=== PATIENT | male | born 2000 | race Caucasian/White ===

== ENCOUNTER 2021-05-14 19:38 | Emergency (ER) | payer OTHER, SELFPAY ==
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
[2021-05-14 20:45] VITALS: BP 113/70; PULSE 71; RESP 18; TEMP 36.7; O2SAT 98; BMI 25.7
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
== END 2021-05-14 23:58 | disposition home or self-care (01) ==
PROVIDERS: Emergency Provider Emergency Medicine Emergency Medical Services
DX: S63.92XA Sprain of unspecified part of left wrist and hand, initial encounter (principal); V43.52XA Car driver injured in collision with other type car in traffic accident, initial encounter; Y93.89 Activity, other specified; Y92.414 Local residential or business street as the place of occurrence of the external cause; Y99.9 Unspecified external cause status
CPT/HCPCS: 73110; 73130; 99283

== ENCOUNTER 2024-10-30 22:37 | Emergency (ER) | payer SELFPAY ==
[2024-10-30 22:47] VITALS: BP 130/100; PULSE 127; O2SAT 94
[2024-10-30 23:15] VITALS: BP 156/89; PULSE 121; RESP 16; TEMP 36.8; O2SAT 95; BMI 27.4
[2024-10-30 23:40] LABS: Hematocrit 44.0 % (42.0-52.0); Hemoglobin 16.0 g/dl (14.0-18.0); Mean Corpuscular HGB Conc 36.4 g/dl (31.0-36.0); Mean Corpuscular Hemoglobin 32.5 pg (27.0-33.0); Mean Corpuscular Volume 89.2 fL (80.0-98.0); NRBC Abs Auto 0.000 X10*3/uL (0.0-0.012); NRBC Pct Auto 0.0 /100WBC (0.0-0.2); Platelet Count 190 X10*3/uL (160-400); Red Blood Count 4.93 X10*6/uL (4.60-5.80); White Blood Count 5.5 X10*3/uL (4.8-10.8)
[2024-10-30 23:53] LABS: Cannabinoid Screen Urine POSITIVE (Not Detect)
[2024-10-30 23:56] LABS: Alanine Aminotransferase 29 U/L (0-40); Albumin Level 5.5 g/dL (3.5-5.0); Alkaline Phosphatase 67 U/L (39-117); Anion Gap 22 (12-20); Aspartate Amino Transferase 55 U/L (5-37); Blood Urea Nitrogen 5 mg/dL (9-16); Calcium 9.9 mg/dL (8.4-10.2); Carbon Dioxide 22 mmol/L (22-29); Chloride 102 mmol/L (96-108); Creatinine Clr Calc Pharmacy 141.0; Estimated Glomerular Filt Rate > 60; Potassium 3.6 mmol/L (3.3-5.1); Sodium 142 mmol/L (135-145); Total Protein 8.0 g/dL (6.5-8.0)
[2024-10-30 23:57] LABS: Acetaminophen LAB < 3 mcg/mL (<30); Salicylate < 5.0 mg/dL (15-30)
[2024-10-31 00:29] LABS: Magnesium 2.2 mg/dL (1.6-2.6)
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
[2024-10-31 05:45] VITALS: BP 119/68; PULSE 78; RESP 18; TEMP 36.7; O2SAT 99
[2024-10-31 06:01] VITALS: BP 119/68; PULSE 78; RESP 18; TEMP 36.7; O2SAT 99
== END 2024-10-31 06:04 | disposition home or self-care (01) ==
PROVIDERS: Emergency Provider Emergency Medicine
DX: F33.1 Major depressive disorder, recurrent, moderate (principal); R45.851 Suicidal ideations; F10.10 Alcohol abuse, uncomplicated; Y90.7 Blood alcohol level of 200-239 mg/100 ml; F12.90 Cannabis use, unspecified, uncomplicated; Z51.81 Encounter for therapeutic drug level monitoring; F17.210 Nicotine dependence, cigarettes, uncomplicated
CPT/HCPCS: 36415; 80053; 80143; 80179; 80307; 83735; 85027; 99284; S9485